=== PATIENT | male | born 1955 | race Caucasian/White ===

== ENCOUNTER → 2017-03-29 | Outpatient (CLI) | payer OTHER ==
[~2017-03-29] MED LIST: AGM875 PO
== END | disposition home or self-care (01) ==
LOC: C.LABSPEC 16:45
PROVIDERS: ATTEND Dermatology
DX: D48.5 Neoplasm of uncertain behavior of skin (principal)

== ENCOUNTER → 2017-03-29 | Outpatient (CLI) | payer OTHER | END | disposition home or self-care (01) | LOC: C.PATHSPEC 16:49 | PROVIDERS: ATTEND Dermatology | DX: L73.8 Other specified follicular disorders (principal) ==

== ENCOUNTER → 2017-07-30 | Outpatient (CLI) | payer OTHER ==
[~2017-07-30] MED LIST changes: +GLUC1CAP35 PO; +MULT-506 PO; +MULTCAP36 PO
== END | disposition home or self-care (01) ==
LOC: C.CPL 08:50
PROVIDERS: ATTEND Orthopaedic Surgery Sports Medicine
DX: Z01.818 Encounter for other preprocedural examination (principal); S83.209A Unspecified tear of unspecified meniscus, current injury, unspecified knee, initial encounter; X58.XXXA Exposure to other specified factors, initial encounter

== ENCOUNTER → 2017-08-11 | Day surgery (SDC) | payer OTHER ==
[2017-08-03 08:16] VITALS: Ht 177.8 cm; Wt 72.7 kg
[~2017-08-11] VITALS: Ht 177.8 cm; Wt 72.7 kg
[~2017-08-11] MED LIST changes: -AGM875 PO; +ATROPINE SULFATE 0.1 MG/ML 5ML SYR IV PRN; +CEFAZOLIN 1000MG IV PUSH 7.5 ML IV SCH; +DEXAMETHASONE SOD INJ 4 MG/ML VIAL ONE; +EpHEDrine SULFATE 50MG/5ML SYR ONE; +EpHEDrine SULFATE INJ 50 MG/ML AMP IV PRN; +EpINEphrine INJ 1MG/ML AMP 1 MG/ML AMP ONE; +FENTANYL CITRATE INJ 50 MCG/1 ML 2 ML VIAL IV PRN; +FENTANYL CITRATE INJ 50 MCG/1 ML 2 ML VIAL ONE; +FLUMAZENIL 0.1 MG/1 ML 10 ML VIAL IV PRN; +HYDROmorphone INJ 2 MG/ML SYR/VIAL IV PRN; +KETO10TA PO; +KETOROLAC TROMETHAMINE 30 MG/ML VIAL ONE; +LABETALOL HCL IV 5 MG/ML 20ML IV PRN; +LACTATED RINGER'S 1000ML 1,000 ML IV SCH; +LIDOCAINE HCL 2% 2 ML VIAL (20MG/ML) ONE; +MEPERIDINE HCL 25 MG/ML CARP IV PRN; +MIDAZOLAM HCL 1 MG/ML 2ML VIAL ONE; +NALOXONE HCL 0.4 MG/1 ML VIAL/CARP IV PRN; +ONDANSETRON INJ 2 MG/ML 2 ML VIAL IV PRN; +ONDANSETRON INJ 2 MG/ML 2 ML VIAL ONE; +OXYC-57 PO; +OXYCODONE/ACETAMINOPHEN 5-325 TAB PO PRN; +PHENYLEPHRINE 100MCG/ML 5ML SYR IV PRN; +PROPOFOL IV EMULSION 10 MG/ML 20 ML VIAL IV ONE; +ROPIVACAINE 0.5% 5 MG/ML 30 ML VIAL ONE; +SODIUM CHLORIDE 0.9% 1000ML 1,000 ML IV SCH
--- NOTE | 2017-08-11 09:18 | History & Physical Bridge - [place] ---
H&P Re-Evaluation Bridge Note: I have examined the patient, reviewed the History & Physical and in the interval since the performance of the History & Physical I have noted the following changes of clinical significance: No changes noted
--- NOTE | 2017-08-11 11:06 | [facility] Post Operative Brief Note ---
Immediate Operative Summary Operative Date Aug 11, 2017. Pre-Operative Diagnosis Right Lateral Meniscal Tear and Degenerative Joint Disease Post-Operative Diagnosis Same Procedure(s) Performed Right Knee Arthroscopy, Partial Lateral Menisectomy Surgeon Dr. Camarillo Supervisor [employer] Surgeon(s) Sadi Lawson PA-C Estimated Blood Loss 0ml Findings Consistent with Post-Op Diagnosis Specimens none Drains None Anesthesia Type General Disposition Accompanied Pt To Recovery: no Disposition: Recovery Room / PACU
--- NOTE | 2017-08-11 11:08 | Discharge Instructions-SurgCtr ---
Discharge Instructions Date of Service Aug 11, 2017. Visit Reason for Visit: Right Knee Lateral Cartilage Tear &/Or Meniscal Discharge Discharge Diagnosis / Problem: right knee lateral meniscus tear Discharge Goals Goal(s): Decrease discomfort, Improve function, Therapeutic intervention Medications Stopped Medications Name(s): Held Glucosomine and chondroitin x 1 week. Activity Recommendations Activity Limitations: per Instructions/Follow-up section Weightbearing Status: Right weightbearing (as tolerated) Anesthesia . Post Anesthesia Instructions: If you have had General Anesthesia or IV Sedation: * Do not drive today. * Resume driving when surgeon permits. * Do not make important decisions or sign legal documents today. * Call surgeon for: 1. Temperature elevations greater than 101 degrees F. 2. Uncontrollable pain. 3. Excessive bleeding. 4. Persistent nausea and vomiting. 5. Medication intolerance (nausea, vomiting or rash). * For nausea and vomiting use only clear liquids such as: tea, soda, bouillon until nausea subsides, then gradually increase diet as tolerated. * If you have any concerns or questions, call your surgeon's office. If physician is unavailable and it is an emergency, call 911 or go to the nearest emergency room. . Instructions / Follow-Up Instructions / Follow-Up MEDICATIONS: * Resume previous medications unless instructed otherwise by your surgeon. * Always take pain medication on a full stomach or with food to avoid upset stomach. * Do not drink alcohol or drive while taking narcotics. * Ibuprofen or Tylenol may be taken if narcotic not needed.No ibuprofen while taking toradol SPECIAL CARE INSTRUCTIONS: __ None _x_ Keep extremity elevated and iced x 48 hours; apply ice 20-30 minutes 8-10 times/day. May remove at night. __ Crutches __ May discard when able __ Brace/Post-op shoe __ 24 hrs/day __ Remove at night _x_ Dressing __ Maintain until seen in office, may shower with plastic over site _x_ Remove dressings in 24-48 hours and then may shower _x_ Cover incisions with band-aids after showering __ Do not remove steri-strips Call physician if chills or temperature rises above 102 degrees or pain unrelieved by prescribed pain medications. Office [phone] follow up in 2 weeks Diet Recommendations Home Diet: resume previous diet Procedures Procedures Performed: Right Knee Arthroscopy, Partial Lateral Menisectomy Pending Studies Studies pending at discharge: no Medical Emergencies . Who to Call and When: Medical Emergencies: If at any time you feel your situation is an emergency, please call 911 immediately. . Non-Emergent Contact Non-Emergency issues call your: Surgeon . . "Provider Documentation" section prepared by Virgil Lawson. .
--- NOTE | 2017-08-11 11:31 | Anesthesia Progress Nt - [facility] ---
Anesthesia Post Op Note Date & Time Aug 11, 2017 at 11:31 Vital Signs Pain Intensity: 0 Vital Signs Past 12 Hours Date Time Temp Pulse Resp B/P (MAP) Pulse Ox O2 Delivery O2 Flow Rate FiO2 08/11/17 11:26 128/91 08/11/17 11:23 58 22 08/11/17 11:23 57 22 99 08/11/17 11:20 117/81 08/11/17 11:18 58 12 99 08/11/17 11:18 55 12 08/11/17 11:16 127/84 08/11/17 11:13 67 11 99 08/11/17 11:13 65 11 08/11/17 11:12 68 13 98 08/11/17 11:12 68 13 08/11/17 11:11 122/85 08/11/17 11:08 139/87 08/11/17 11:07 62 98 08/11/17 11:07 36.4 60 12 139/87 98 Mask 9 08/11/17 11:07 62 08/11/17 08:44 36.4 54 16 140/91 (107) 99 Room Air Notes Mental Status: alert / awake / arousable, participated in evaluation Pt Amnestic to Procedure: Yes Nausea / Vomiting: adequately controlled Pain: adequately controlled Airway Patency, RR, SpO2: stable & adequate BP & HR: stable & adequate Hydration State: stable & adequate Anesthetic Complications: no major complications apparent
[2017-08-11 11:42] VITALS: TEMP 36.3
[2017-08-11 12:04] VITALS: BP 132/87; PULSE 51; O2SAT 100
--- NOTE | 2017-08-11 21:12 | OPERATIVE REPORT ---
DATE OF OPERATION: 08/11/2017 SURGEON: James Camarillo MD [employer] APPRENTICE: THOMAS Ritter. PREOPERATIVE DIAGNOSES: 1. Right knee lateral meniscus tear. 2. Right knee mild degenerative joint disease. POSTOPERATIVE DIAGNOSES: Same. PROCEDURE PERFORMED: 1. Right knee exam under anesthesia. 2. Right knee diagnostic arthroscopy. 3. Right knee arthroscopic partial lateral meniscectomy. COMPLICATIONS: None. ESTIMATED BLOOD LOSS: Minimal. TOURNIQUET TIME: 19 minutes at 300 mmHg. ANESTHESIA: General. SPECIMENS: None. OPERATIVE INDICATIONS: The patient is a 61-year-old very active gentleman and avid runner who has had a year history of right knee pain and discomfort that has gotten gradually worse to the point where he is having trouble running. He has not been able to run for the past 6 months. We saw him in clinic and treated him conservatively for a while. We got an MRI which showed a lateral meniscus tear. We tried to get him back to running but were unsuccessful. He has elected to proceed with surgical treatment. X-rays are pretty normal looking. OPERATIVE FINDINGS: Examination under anesthesia of the right knee revealed no significant knee effusion. His range of motion was full extension to 135 degrees of flexion. There is no clinical instability. Esmer's is negative for mechanical symptoms. ARTHROSCOPIC FINDINGS: Arthroscopic findings revealed some mild age-related changes to the patellofemoral joint. In the intercondylar notch, the ACL and PCL were intact. In the medial compartment, the articular surface and meniscus revealed some mild age-related changes. In the lateral compartment, there was a very complex degenerative tear of the entire lateral meniscus. There are some grade 1-2 changes in the lateral compartment diffusely. OPERATIVE PROCEDURE: The patient taken to the operating room, identified and placed on the operating table in supine position. All contact areas were appropriately padded. IV antibiotics were provided by anesthesia team. A general anesthetic was implemented by the anesthesia team. Right thigh tourniquet was then placed and the right lower extremity was then examined under anesthesia with findings as described above. The right leg was then prepped and draped in usual sterile fashion. The right leg was elevated and exsanguinated with an Esmarch and tourniquet placed at 300 mmHg. Routine right knee arthroscopy was then performed through typical anteromedial and anterolateral portals. Supralateral portal were established for outflow. I did resect some of the fat pad so I could adequately see. Attention was then drawn to the lateral meniscus. With the use of motorized and hand controlled instruments, I resected the unstable portion of the lateral meniscus. There was a flap noted posteriorly which I resected its attachment to the root. Once this was complete, I did use the shaver just to lightly debride the cartilage at the end of the femur and the top of the tibia on the side of the joint. There were no major cartilage defects. Once this was complete, the arthroscopic incisions then placed throughout the knee joint. All extraneous debris was removed. The arthroscopic instruments were then removed from the knee joint. The portals were closed with 3-0 Prolene suture in a simple fashion. The knee was injected with 30 mL of 0.5% ropivacaine with epinephrine and 30 mg of Toradol. A sterile dressing with Xeroform, 4 x 4, sterile cast padding and Marlon bandage were applied. The tourniquet was then let down for a final tourniquet time of 19 minutes. The patient then brought out of general anesthesia and transferred to the recovery room in stable condition. The patient tolerated the procedure well with no complication. All needle and sponge counts were correct at the end of the operation. I attest to the content of the Intraoperative Record and any orders documented therein. Any exception s are noted below.
== END | disposition home or self-care (01) ==
LOC: X.SURG 08:12
PROVIDERS: ATTEND Orthopaedic Surgery Sports Medicine
DX: M23.261 Derangement of other lateral meniscus due to old tear or injury, right knee (principal); E78.5 Hyperlipidemia, unspecified